=== PATIENT | male | born 1965 | race Two or more races ===

== ENCOUNTER 2024-11-21 16:26 | Inpatient (IN) | payer MEDICAID, OTHER ==
[~2024-11-21] VITALS: Ht 165.1 cm; Wt 54.4 kg
[2024-11-21] MEDS ORDERED: CALCIUM CHLORIDE 1,000 MG/10 ML DISP.SYRIN ONE (16:46)
[2024-11-21] MEDS ORDERED: SODIUM BICARBONATE SYR 50 MEQ/50 ML DISP.SYRIN ONE (16:46)
[2024-11-21] MEDS: CALCIUM CHLORIDE 1,000 MG/10 ML DISP.SYRIN IV ONE (16:48)
[2024-11-21] MEDS: SODIUM BICARBONATE SYR 100 MEQ in IV D5W 1,000 ML IV ONE (16:50)
[2024-11-21 16:54] LABS: PLATELET COUNT (AUTO) 268 K/uL (150-450); RED BLOOD CELL COUNT(AUTO) 2.48 MIL/uL (4.5-6.0); RED CELL DISTRIBUTION WIDTH 17.9 % (11.5-15.0); WHITE BLOOD COUNT (AUTO) 24.2 K/uL (4.3-11.0)
[2024-11-21 17:06] LABS: INR 1.12 (0.91-1.10)
[2024-11-21 17:12] LABS: LACTIC ACID 1.7 mmol/L (0.4-2.0)
[2024-11-21 17:15] LABS: SODIUM SERUM 126 mmol/L (136-145)
[2024-11-21 17:17] LABS: SERUM AMMONIA < 10 umol/L (11-32)
[2024-11-21 17:18] LABS: CALCIUM, SERUM 8.9 mg/dL (8.5-10.1)
[2024-11-21 17:22] LABS: ASPARTATE AMINOTRANSFERASE 43 U/L (15-37)
[2024-11-21 17:23] LABS: TOTAL PROTEIN, SERUM 7.9 g/dL (6.4-8.2)
[2024-11-21 17:26] LABS: CREATININE 12.5 mg/dL (0.6-1.3); UREA NITROGEN, BLOOD 154 mg/dL (7-18)
[2024-11-21] MEDS ORDERED: SODIUM ZIRCONIUM CYCLOSILICATE 10 GM POWD.PACK ONE (17:37)
[2024-11-21] MEDS ORDERED: INSULIN REGULAR, HUMAN 100 UNIT/ML 10 ML VIAL ONE (17:37)
[2024-11-21] MEDS: INSULIN REGULAR, HUMAN 100 UNIT/ML 10 ML VIAL IV ONE (17:45)
[2024-11-21] MEDS: SODIUM ZIRCONIUM CYCLOSILICATE 10 GM POWD.PACK GT ONE (17:48)
[2024-11-21 17:50] LABS: ALCOHOL, BLOOD < 3 mg/dL (0-10)
[2024-11-21] MEDS ORDERED: PANT40SU2 GT (19:20)
[2024-11-21] MEDS ORDERED: ACET325T53 GT ×2 (19:20)
[2024-11-21] MEDS ORDERED: AMLO-213 GT (19:20)
[2024-11-21] MEDS ORDERED: HYDR-4076 GT (19:20)
[2024-11-21] MEDS ORDERED: NUT.237L67 GT (19:20)
[2024-11-21] MEDS ORDERED: SENN-261 GT (19:20)
[2024-11-21] MEDS ORDERED: NA P133E RC (19:20)
[2024-11-21] MEDS ORDERED: INSU100V7 SQ (19:20)
[2024-11-21] MEDS ORDERED: GLUC1KIT IJ (19:20)
[2024-11-21] MEDS ORDERED: LOSA50TA39 GT (19:20)
[2024-11-21] MEDS ORDERED: ASPI-1169 GT (19:20)
[2024-11-21] MEDS ORDERED: FOLI0.8T2 GT (19:20)
[2024-11-21] MEDS ORDERED: MAGN400O6 GT (19:20)
[2024-11-21] MEDS ORDERED: IPRA3AMP23 IH (19:20)
[2024-11-21] MEDS ORDERED: ACET-73 PO (19:20)
[2024-11-21] MEDS ORDERED: BISA10SU11 RC (19:20)
[2024-11-21] MEDS ORDERED: SODI4VIA14 HHN (19:20)
[2024-11-21] MEDS ORDERED: INSU100V39 SQ (19:20)
[2024-11-21] MEDS ORDERED: ATOR40TA GT (19:20)
[2024-11-21] MEDS ORDERED: ACET-73 GT (19:20)
[2024-11-21] MEDS ORDERED: HEPARIN SODIUM, PORCINE 5000 UNITS/1 ML VIAL SQ SCH (21:00)
[2024-11-21] MEDS ORDERED: ONDANSETRON HCL/PF 4 MG/2 ML VIAL IVP PRN (21:00)
[2024-11-21 22:18] LABS: CALCIUM, SERUM 9.6 mg/dL (8.5-10.1)
[2024-11-21 22:25] LABS: SODIUM SERUM 130.0 mmol/L (136-145)
[2024-11-21 22:28] LABS: CREATININE 13.2 mg/dL (0.6-1.3); UREA NITROGEN, BLOOD 169.0 mg/dL (7-18)
[2024-11-21] MEDS ORDERED: BISACODYL SUPP (10 MG) 10 MG/SUPP.RECT SUPP.RECT RC PRN (22:30)
[2024-11-21] MEDS ORDERED: NA PHOS,M-B/NA PHOS,DI-BA 1 EA ENEMA RC PRN (22:30)
[2024-11-21] MEDS ORDERED: Medication Not On Formulary EA (Ipratropium/Albuterol Sulfate (Duoneb 2.5-0.5 Mg/3 Ml So IH PRN (22:30)
[2024-11-21] MEDS ORDERED: MAGNESIUM HYDROXIDE 30 ML UDC GT PRN (22:30)
[2024-11-21 23:00] VITALS: BP 103/53; TEMP 99.9; O2SAT 98
[2024-11-21 23:15] VITALS: BP 116/53; O2SAT 99
[2024-11-21] MEDS: CEFTRIAXONE 1 G in IV D5W 50 ML IV SCH (23:25)
[2024-11-21 23:30] VITALS: BP 120/57; O2SAT 99
[2024-11-21] MEDS: IV NS 0.9% 250 ML IV PRN (23:30)
[2024-11-21 23:45] VITALS: BP 104/64; O2SAT 99
[2024-11-22] VITALS (45 sets, daily range): BP systolic 65–166; BP diastolic 45–81; TEMP 97.6–98.8; O2SAT 98–100
[2024-11-22] MEDS ORDERED: SODIUM CHLORIDE IH SCH
[2024-11-22] MEDS: NOREPINEPHRINE 4 MG/4 ML AMPUL IV ONE (00:47)
[2024-11-22] MEDS: ALBUTEROL FS 2.5 MG/0.5 ML VIAL.NEB NEB PRN (00:50)
[2024-11-22] MEDS: IPRATROPIUM NEB FS 0.5 MG/2.5 ML AMPUL.NEB IH PRN (00:50)
[2024-11-22] MEDS: NOREPINEPHRINE 8 MG in IV NS 0.9% 242 ML IV PRN (00:52)
[2024-11-22] MEDS ORDERED: NOREPINEPHRINE 8 MG in IV NS 0.9% 242 ML IV PRN (01:00)
[2024-11-22] MEDS: HYDROCODONE/APAP 5/325MG TABLET PO PRN (01:51)
[2024-11-22] MEDS ORDERED: DOSING PER PHARMACY-CEFEPIME IVPB XX PRN (02:00)
[2024-11-22] MEDS ORDERED: DEXTROSE 50%-WATER 50 ML DISP.SYRIN IV PRN (02:00)
[2024-11-22] MEDS ORDERED: DOSING PER PHARMACY-VANCOMYCIN IV XX PRN (02:00)
[2024-11-22] MEDS: VANCOMYCIN 1 GM /D5W 250 ML PB IV ONE (03:31)
[2024-11-22] MEDS: VANCOMYCIN 1 GM in IV D5W 250ml IV ONE (03:32)
[2024-11-22 04:39] LABS: PLATELET COUNT (AUTO) 293 K/uL (150-450); RED BLOOD CELL COUNT(AUTO) 2.70 MIL/uL (4.5-6.0); RED CELL DISTRIBUTION WIDTH 17.4 % (11.5-15.0); WHITE BLOOD COUNT (AUTO) 25.1 K/uL (4.3-11.0)
[2024-11-22 04:47] LABS: CALCIUM, SERUM 9.3 mg/dL (8.5-10.1); CREATININE 4.7 mg/dL (0.6-1.3); PHOSPHORUS 2.8 mg/dL (2.5-4.9); SODIUM SERUM 135.0 mmol/L (136-145); UREA NITROGEN, BLOOD 50.0 mg/dL (7-18)
[2024-11-22 05:32] LABS: ABG BASE EXCESS 0.4 mmol/L (-2.0-3.0); ABG OXYGEN SATURATION 97.6 % (94.0-98.0); ABG PCO2 28.9 mmHg (35.0-48.0); ABG PH 7.517 (7.350-7.450); ABG PO2 111.5 mmHg (83.0-108.0); ABG TOTAL HEMOGLOBIN 8.6 G/dL (13.5-17.5); FRACTIONATED INSPIRED OXYGEN 40.0 %; SET RATE, BG 14.0; SITE, ABG RIGHT RADIAL; VT, ABG 450 mL
[2024-11-22] MEDS: BLOOD SUGAR DIAGNOSTIC 1 EACH STRIP IN SCH (06:45)
[2024-11-22] MEDS: VIT B CMPLX 3/FA/VIT C/BIOTIN 1 TAB TABLET GT SCH (08:55)
[2024-11-22] MEDS: PANTOPRAZOLE 40 MG VIAL IV SCH (08:55)
[2024-11-22] MEDS: ASPIRIN 81 MG TAB.CHEW GT SCH (08:55)
[2024-11-22] MEDS: CEFEPIME 1 GM in IV D5W 50 ML IV SCH (08:56)
[2024-11-22] MEDS: INSULIN GLARGINE, 100 UNIT/ML CARTRIDGE SQ SCH (08:56)
[2024-11-22] MEDS ORDERED: AMLODIPINE BESYLATE 10 MG TABLET GT SCH (09:00)
[2024-11-22] MEDS ORDERED: LOSARTAN POTASSIUM 50 MG TABLET GT SCH (09:00)
[2024-11-22] MEDS: INSULIN REGULAR, HUMAN 100 UNIT/ML 3 ML VIAL SQ PRN (12:50)
[2024-11-22] MEDS: PROSOURCE / PROSTAT (PYXIS) 30 ML UDC GT SCH (13:14)
[2024-11-22] MEDS: NEPRO 1,000 ML BOTTLE GT PRN (16:58)
[2024-11-22] MEDS: ATORVASTATIN 40 MG TABLET GT SCH (22:21)
[2024-11-23] VITALS (21 sets, daily range): BP systolic 94–132; BP diastolic 56–74; TEMP 97.8–98.1; O2SAT 98–100
[2024-11-23 05:09] LABS: HEPATITIS B SURFACE AB (QUAL) Non Reactive (.)
[2024-11-23 07:06] LABS: PLATELET COUNT (AUTO) 272 K/uL (150-450); RED BLOOD CELL COUNT(AUTO) 2.42 MIL/uL (4.5-6.0); RED CELL DISTRIBUTION WIDTH 17.7 % (11.5-15.0); WHITE BLOOD COUNT (AUTO) 17.1 K/uL (4.3-11.0)
[2024-11-23 07:09] LABS: CALCIUM, SERUM 9.3 mg/dL (8.5-10.1); SODIUM SERUM 135.0 mmol/L (136-145)
[2024-11-23 07:22] LABS: CREATININE 8.0 mg/dL (0.6-1.3); UREA NITROGEN, BLOOD 88.0 mg/dL (7-18)
[2024-11-23] MEDS: PANTOPRAZOLE 40 MG/PACK PACK NG SCH (09:32)
[2024-11-24] VITALS: BP 112/66; TEMP 98.2; O2SAT 100
[2024-11-24] MEDS: VANCOMYCIN 500 MG in IV D5W 100 ML IV PRN (03:57)
[2024-11-24 04:00] VITALS: BP 131/84; TEMP 98.1; O2SAT 100
[2024-11-24 06:00] LABS: PLATELET COUNT (AUTO) 316 K/uL (150-450); RED BLOOD CELL COUNT(AUTO) 2.40 MIL/uL (4.5-6.0); RED CELL DISTRIBUTION WIDTH 17.9 % (11.5-15.0); WHITE BLOOD COUNT (AUTO) 19.5 K/uL (4.3-11.0)
[2024-11-24 06:04] LABS: CALCIUM, SERUM 9.2 mg/dL (8.5-10.1); CREATININE 4.3 mg/dL (0.6-1.3); SODIUM SERUM 137.0 mmol/L (136-145); UREA NITROGEN, BLOOD 39.0 mg/dL (7-18)
[2024-11-24 08:00] VITALS: BP 129/73; TEMP 100; O2SAT 99
[2024-11-24] MEDS: ACETAMINOPHEN 325 MG TABLET PO PRN (09:51)
[2024-11-24 12:00] VITALS: BP 125/72; TEMP 101.7; O2SAT 100
[2024-11-24 16:00] VITALS: BP 104/73; TEMP 98.1; O2SAT 100
[2024-11-24 20:00] VITALS: BP 128/77; TEMP 98.2; O2SAT 99
[2024-11-25] VITALS (7 sets, daily range): BP systolic 131–176; BP diastolic 72–77; TEMP 97.5–98.4; O2SAT 98–100
[2024-11-25 08:35] LABS: PLATELET COUNT (AUTO) 295 K/uL (150-450); RED BLOOD CELL COUNT(AUTO) 2.87 MIL/uL (4.5-6.0); RED CELL DISTRIBUTION WIDTH 17.9 % (11.5-15.0); WHITE BLOOD COUNT (AUTO) 15.5 K/uL (4.3-11.0)
[2024-11-25 08:36] LABS: CALCIUM, SERUM 9.6 mg/dL (8.5-10.1); CREATININE 6.3 mg/dL (0.6-1.3); SODIUM SERUM 138.0 mmol/L (136-145); UREA NITROGEN, BLOOD 73.0 mg/dL (7-18)
[2024-11-26] VITALS: BP 93/49; TEMP 98.4; O2SAT 99
[2024-11-26 04:00] VITALS: BP 90/64; TEMP 98.5; O2SAT 100
[2024-11-26 06:11] LABS: OCCULT BLOOD STOOL NEGATIVE (NEGATIVE)
[2024-11-26 06:48] LABS: PLATELET COUNT (AUTO) 274 K/uL (150-450); RED BLOOD CELL COUNT(AUTO) 2.89 MIL/uL (4.5-6.0); RED CELL DISTRIBUTION WIDTH 17.8 % (11.5-15.0); WHITE BLOOD COUNT (AUTO) 22.4 K/uL (4.3-11.0)
[2024-11-26 07:04] LABS: CALCIUM, SERUM 9.3 mg/dL (8.5-10.1); CREATININE 4.3 mg/dL (0.6-1.3); SODIUM SERUM 137.0 mmol/L (136-145); UREA NITROGEN, BLOOD 46.0 mg/dL (7-18)
[2024-11-26 08:00] VITALS: BP 90/65; TEMP 97.8; O2SAT 96
[2024-11-26 12:00] VITALS: BP 95/62; TEMP 98.1; O2SAT 96
[2024-11-26 16:01] VITALS: BP 92/59; TEMP 99; O2SAT 96
[2024-11-26 20:00] VITALS: BP 91/65; TEMP 97.5; O2SAT 98
[2024-11-27] VITALS: BP 94/61; TEMP 99.3; O2SAT 98
[2024-11-27 04:00] VITALS: BP 99/67; TEMP 99; O2SAT 100
[2024-11-27 07:26] LABS: PLATELET COUNT (AUTO) 283 K/uL (150-450); RED BLOOD CELL COUNT(AUTO) 2.68 MIL/uL (4.5-6.0); RED CELL DISTRIBUTION WIDTH 17.7 % (11.5-15.0); WHITE BLOOD COUNT (AUTO) 21.2 K/uL (4.3-11.0)
[2024-11-27 07:35] LABS: CALCIUM, SERUM 9.7 mg/dL (8.5-10.1); CREATININE 6.4 mg/dL (0.6-1.3); SODIUM SERUM 140.0 mmol/L (136-145); UREA NITROGEN, BLOOD 77.0 mg/dL (7-18)
[2024-11-27 08:00] VITALS: BP 94/62; TEMP 98.1; O2SAT 100
[2024-11-27] MEDS: ALBUMIN 25% 25 GM in PREMIX 1 EA IV PRN (11:41)
[2024-11-27 12:00] VITALS: BP 95/63; TEMP 98.3; O2SAT 100
[2024-11-27 16:00] VITALS: BP 125/73; TEMP 97.5; O2SAT 100
[2024-11-27 20:02] VITALS: BP 106/67; TEMP 98.5; O2SAT 100
[2024-11-28 00:10] VITALS: BP 110/70; TEMP 98.8; O2SAT 100
[2024-11-28 04:15] VITALS: BP 110/63; TEMP 97.6; O2SAT 100
[2024-11-28 07:26] LABS: PLATELET COUNT (AUTO) 255 K/uL (150-450); RED BLOOD CELL COUNT(AUTO) 2.84 MIL/uL (4.5-6.0); RED CELL DISTRIBUTION WIDTH 17.7 % (11.5-15.0); WHITE BLOOD COUNT (AUTO) 21.9 K/uL (4.3-11.0)
[2024-11-28 08:00] VITALS: BP 100/64; TEMP 100.8; O2SAT 100
[2024-11-28 08:06] LABS: CALCIUM, SERUM 9.9 mg/dL (8.5-10.1); CREATININE 5.0 mg/dL (0.6-1.3); SODIUM SERUM 143.0 mmol/L (136-145); UREA NITROGEN, BLOOD 58.0 mg/dL (7-18)
[2024-11-28] MEDS: DAKINS QUARTER STRENGTH (0.125%) 480 ML BOTTLE TOP SCH (10:27)
[2024-11-28 12:00] VITALS: BP 102/63; TEMP 99.1; O2SAT 100
[2024-11-28 16:00] VITALS: BP 102/70; TEMP 98.1; O2SAT 100
[2024-11-28 20:00] VITALS: BP 97/63; TEMP 98.1; O2SAT 100
[2024-11-28] MEDS: MEROPENEM 500 MG in IV NS 0.9% 50 ML IV SCH (21:45)
[2024-11-29] VITALS (19 sets, daily range): BP systolic 76–128; BP diastolic 54–75; TEMP 97.7–99; O2SAT 96–100
[2024-11-29 07:47] LABS: ASPARTATE AMINOTRANSFERASE 65.0 U/L (15-37); TOTAL PROTEIN, SERUM 9.1 g/dL (6.4-8.2)
[2024-11-29 07:49] LABS: CALCIUM, SERUM 9.8 mg/dL (8.5-10.1); CREATININE 6.7 mg/dL (0.6-1.3); SODIUM SERUM 140.0 mmol/L (136-145)
[2024-11-29 08:39] LABS: UREA NITROGEN, BLOOD 89.0 mg/dL (7-18)
[2024-11-29 10:45] LABS: PLATELET COUNT (AUTO) 302 K/uL (150-450); RED BLOOD CELL COUNT(AUTO) 2.66 MIL/uL (4.5-6.0); RED CELL DISTRIBUTION WIDTH 17.5 % (11.5-15.0); WHITE BLOOD COUNT (AUTO) 20.8 K/uL (4.3-11.0)
[2024-11-30] VITALS: BP 146/85; TEMP 97.7; O2SAT 100
[2024-11-30 04:00] VITALS: BP 99/69; TEMP 97.9; O2SAT 100
[2024-11-30 06:58] LABS: CALCIUM, SERUM 10.0 mg/dL (8.5-10.1); CREATININE 4.6 mg/dL (0.6-1.3); SODIUM SERUM 143.0 mmol/L (136-145); UREA NITROGEN, BLOOD 64.0 mg/dL (7-18)
[2024-11-30 08:00] VITALS: BP 105/71; TEMP 99; O2SAT 100
[2024-11-30 12:00] VITALS: BP 101/75; TEMP 98.9; O2SAT 100
[2024-11-30 13:32] LABS: PLATELET COUNT (AUTO) 256 K/uL (150-450); RED BLOOD CELL COUNT(AUTO) 2.96 MIL/uL (4.5-6.0); RED CELL DISTRIBUTION WIDTH 18.1 % (11.5-15.0); WHITE BLOOD COUNT (AUTO) 18.6 K/uL (4.3-11.0)
[2024-11-30 16:00] VITALS: BP 103/82; TEMP 97.7; O2SAT 100
[2024-11-30 20:00] VITALS: BP 118/80; TEMP 97.5; O2SAT 100
[2024-12-01] VITALS (7 sets, daily range): BP systolic 82–116; BP diastolic 60–73; TEMP 97.5–100.6; O2SAT 99–100
[2024-12-01 07:29] LABS: CALCIUM, SERUM 10.0 mg/dL (8.5-10.1); CREATININE 6.2 mg/dL (0.6-1.3); SODIUM SERUM 143.0 mmol/L (136-145)
[2024-12-01 08:06] LABS: UREA NITROGEN, BLOOD 98.0 mg/dL (7-18)
[2024-12-01] MEDS ORDERED: DOSING PER PHARMACY-TOBRAMYCIN IV XX PRN (16:00)
[2024-12-01] MEDS: LEVOFLOXACIN (250MG) 250 MG TABLET PO SCH (18:48)
[2024-12-01] MEDS: D5W IV ONE (18:48)
[2024-12-01] MEDS: TOBRAMYCIN IV ONE (18:48)
[2024-12-02] VITALS: BP 112/65; TEMP 98.1; O2SAT 100
[2024-12-02 04:00] VITALS: BP 107/73; TEMP 98.2; O2SAT 100
[2024-12-02 07:15] LABS: PLATELET COUNT (AUTO) 215 K/uL (150-450); RED BLOOD CELL COUNT(AUTO) 2.66 MIL/uL (4.5-6.0); RED CELL DISTRIBUTION WIDTH 17.5 % (11.5-15.0); WHITE BLOOD COUNT (AUTO) 16.8 K/uL (4.3-11.0)
[2024-12-02 07:41] LABS: CALCIUM, SERUM 9.6 mg/dL (8.5-10.1); CREATININE 4.7 mg/dL (0.6-1.3); SODIUM SERUM 138.0 mmol/L (136-145); UREA NITROGEN, BLOOD 69.0 mg/dL (7-18)
[2024-12-02 08:00] VITALS: BP 110/68; TEMP 98.1; O2SAT 100
[2024-12-02 12:00] VITALS: BP 103/62; TEMP 98.6; O2SAT 99
[2024-12-02 16:00] VITALS: BP 94/66; TEMP 98.1; O2SAT 100
[2024-12-02 20:00] VITALS: BP 119/79; TEMP 98.1; O2SAT 100
[2024-12-03] VITALS: BP 122/82; TEMP 97.3; O2SAT 100
[2024-12-03 04:00] VITALS: BP 134/85; TEMP 98.1; O2SAT 100
[2024-12-03 07:18] LABS: CALCIUM, SERUM 9.4 mg/dL (8.5-10.1); CREATININE 6.2 mg/dL (0.6-1.3); SODIUM SERUM 135.0 mmol/L (136-145)
[2024-12-03 07:48] LABS: UREA NITROGEN, BLOOD 104.0 mg/dL (7-18)
[2024-12-03 08:00] VITALS: BP 108/72; TEMP 97.5; O2SAT 99
[2024-12-03 12:00] VITALS: BP 130/80; TEMP 97.7; O2SAT 99
[2024-12-03 16:00] VITALS: BP 101/70; TEMP 97.6; O2SAT 100
[2024-12-03] MEDS ORDERED: ALBUMIN 25% 25 GM in PREMIX 1 EA IV PRN (16:30)
[2024-12-03] MEDS: TOBRAMYCIN 80 MG in IV D5W 50 ML IV PRN (19:35)
[2024-12-03 20:00] VITALS: BP 145/90; TEMP 97; O2SAT 99
[2024-12-04] VITALS: BP 131/84; TEMP 97.3; O2SAT 100
[2024-12-04 04:00] VITALS: BP 111/72; TEMP 98.8; O2SAT 100
[2024-12-04 07:12] LABS: CALCIUM, SERUM 9.5 mg/dL (8.5-10.1); CREATININE 4.6 mg/dL (0.6-1.3); SODIUM SERUM 137.0 mmol/L (136-145); UREA NITROGEN, BLOOD 74.0 mg/dL (7-18)
[2024-12-04 08:00] VITALS: BP 87/58; TEMP 99.1; O2SAT 99
[2024-12-04 09:26] LABS: PLATELET COUNT (AUTO) 219 K/uL (150-450); RED BLOOD CELL COUNT(AUTO) 2.61 MIL/uL (4.5-6.0); RED CELL DISTRIBUTION WIDTH 18.1 % (11.5-15.0); WHITE BLOOD COUNT (AUTO) 14.6 K/uL (4.3-11.0)
[2024-12-04 12:00] VITALS: BP 101/70; TEMP 98.6; O2SAT 99
[2024-12-04 16:00] VITALS: BP 109/77; TEMP 98.6; O2SAT 99
[2024-12-04 20:00] VITALS: BP 126/80; TEMP 98.2; O2SAT 100
[2024-12-05] VITALS (7 sets, daily range): BP systolic 62–148; BP diastolic 47–87; TEMP 97.5–99; O2SAT 97–100
[2024-12-05 07:00] LABS: PLATELET COUNT (AUTO) 250 K/uL (150-450); RED BLOOD CELL COUNT(AUTO) 2.80 MIL/uL (4.5-6.0); RED CELL DISTRIBUTION WIDTH 17.9 % (11.5-15.0); WHITE BLOOD COUNT (AUTO) 15.6 K/uL (4.3-11.0)
[2024-12-05 07:05] LABS: CALCIUM, SERUM 9.3 mg/dL (8.5-10.1); SODIUM SERUM 140.0 mmol/L (136-145)
[2024-12-05 07:14] LABS: CREATININE 6.0 mg/dL (0.6-1.3)
[2024-12-05 07:51] LABS: UREA NITROGEN, BLOOD 102.0 mg/dL (7-18)
[2024-12-06] VITALS: BP 133/75; TEMP 97.9; O2SAT 100
[2024-12-06 04:00] VITALS: BP 133/85; TEMP 97.5; O2SAT 100
[2024-12-06 06:09] LABS: CALCIUM, SERUM 9.3 mg/dL (8.5-10.1); CREATININE 6.1 mg/dL (0.6-1.3); SODIUM SERUM 133.0 mmol/L (136-145)
[2024-12-06 06:11] LABS: UREA NITROGEN, BLOOD 101.0 mg/dL (7-18)
[2024-12-06 09:54] VITALS: BP 140/90; TEMP 97.3; O2SAT 100
[2024-12-06 12:00] VITALS: BP 157/90; TEMP 98; O2SAT 100
[2024-12-06 16:00] VITALS: BP 135/84; TEMP 97.6; O2SAT 100
[2024-12-06 20:00] VITALS: BP 145/90; TEMP 97.8; O2SAT 100
[2024-12-07] VITALS: BP 121/81; TEMP 97.8; O2SAT 100
[2024-12-07 04:00] VITALS: BP 112/75; TEMP 97.5; O2SAT 100
[2024-12-07 06:22] LABS: PLATELET COUNT (AUTO) 265 K/uL (150-450); RED BLOOD CELL COUNT(AUTO) 2.58 MIL/uL (4.5-6.0); RED CELL DISTRIBUTION WIDTH 17.8 % (11.5-15.0); WHITE BLOOD COUNT (AUTO) 10.8 K/uL (4.3-11.0)
[2024-12-07 06:41] LABS: CREATININE 7.2 mg/dL (0.6-1.3); SODIUM SERUM 136.0 mmol/L (136-145)
[2024-12-07 06:55] LABS: CALCIUM, SERUM 9.4 mg/dL (8.5-10.1)
[2024-12-07 07:25] LABS: UREA NITROGEN, BLOOD 123.0 mg/dL (7-18)
[2024-12-07 08:00] VITALS: BP 137/84; TEMP 97.7; O2SAT 100
[2024-12-07 12:00] VITALS: BP 124/82; TEMP 98.6; O2SAT 100
[2024-12-07 16:00] VITALS: BP 163/92; TEMP 98.6; O2SAT 100
[2024-12-07 20:00] VITALS: BP 136/90; TEMP 97.5; O2SAT 100
== END 2024-12-07 23:11 | DRG 720 ==
LOC: ER 16:32 → ICU 19:11 → TELE1 11-23 19:31
PROVIDERS: ADMIT Registered Nurse Psychiatric/Mental Health; ATTEND Nurse Practitioner Acute Care
PROC: 5A1955Z Respiratory Ventilation, Greater than 96 Consecutive Hours (ICD-10-PCS; principal; 2024-11-21)
PROC: 5A1D70Z Performance of Urinary Filtration, Intermittent, Less than 6 Hours Per Day (ICD-10-PCS; 2024-11-21)
PROC: 05HB33Z Insertion of Infusion Device into Right Basilic Vein, Percutaneous Approach (ICD-10-PCS; 2024-11-22)
DX: A41.9 Sepsis, unspecified organism (principal); J96.21 Acute and chronic respiratory failure with hypoxia; I13.2 Hypertensive heart and chronic kidney disease with heart failure and with stage 5 chronic kidney disease, or end stage renal disease; Z99.11 Dependence on respirator [ventilator] status; J15.1 Pneumonia due to Pseudomonas; G93.41 Metabolic encephalopathy; R13.10 Dysphagia, unspecified; L89.156 Pressure-induced deep tissue damage of sacral region; I21.A1 Myocardial infarction type 2; N18.6 End stage renal disease; D63.8 Anemia in other chronic diseases classified elsewhere; Z93.0 Tracheostomy status; E87.5 Hyperkalemia; E11.65 Type 2 diabetes mellitus with hyperglycemia; Z99.2 Dependence on renal dialysis; Z93.1 Gastrostomy status; Z86.74 Personal history of sudden cardiac arrest; Z86.79 Personal history of other diseases of the circulatory system; Z20.822 Contact with and (suspected) exposure to COVID-19; I50.9 Heart failure, unspecified; Z79.4 Long term (current) use of insulin; Z79.82 Long term (current) use of aspirin; Z79.51 Long term (current) use of inhaled steroids; Y95 Nosocomial condition; E78.5 Hyperlipidemia, unspecified; E11.22 Type 2 diabetes mellitus with diabetic chronic kidney disease; E87.1 Hypo-osmolality and hyponatremia; R79.89 Other specified abnormal findings of blood chemistry; L98.9 Disorder of the skin and subcutaneous tissue, unspecified; L89.326 Pressure-induced deep tissue damage of left buttock
CPT/HCPCS: 31720; 36415; 36600; 70450-TC; 71045-TC; 71250-TC; 74018; 80048-TC; 80076-TC; 80202-TC; 82140-TC; 82272-TC; 82803-TC; 82962-TC; 83605-TC; 83735-TC; 84100-TC; 84443-TC; 84484-TC; 85025-TC; 85730-TC; 86706; 86850-TC; 87040-TC; 87070-TC; 87081-TC; 87186-TC; 87205-TC; 87340; 90935-TC; 93307-TC; 94003-TC; 94760-TC; 94762-TC; 94799-TC; 99082-TC; A4216; A4223; A4623; A6213; A6403; G0378; G0480; J0692; J0696; J1644; J1815; J2185; J2470; J3260; J3373; J3490; J7030; J7050; J7060; J7120; P9047

== ENCOUNTER 2025-02-13 00:29 | Inpatient (IN) | payer OTHER ==
[2025-02-13] VITALS (52 sets, daily range): BP systolic 76–187; BP diastolic 52–91; TEMP 97.5–99; O2SAT 79–100
[~2025-02-13] VITALS: Ht 162.6 cm; Wt 53.5 kg
[~2025-02-13 00:29] MED LIST: ACET-73 GT; ACET-73 PO; ACET325T53 GT; AMLO-213 GT; ASPI-1169 GT; ATOR40TA GT; BISA10SU11 RC; FOLI0.8T2 GT; GLUC1KIT IJ; HYDR-4076 GT; INSU100V39 SQ; INSU100V7 SQ; IPRA3AMP23 IH; LOSA50TA39 GT; MAGN400O6 GT; NA P133E RC; NUT.237L67 GT; PANT40SU2 GT; SENN-261 GT; SODI4VIA14 HHN
[2025-02-13 00:59] LABS: PLATELET COUNT (AUTO) 209 K/uL (150-450); RED BLOOD CELL COUNT(AUTO) 3.08 MIL/uL (4.5-6.0); RED CELL DISTRIBUTION WIDTH 20.2 % (11.5-15.0); WHITE BLOOD COUNT (AUTO) 17.7 K/uL (4.3-11.0)
[2025-02-13 01:12] LABS: LACTIC ACID 1.6 mmol/L (0.4-2.0)
[2025-02-13 01:14] LABS: INR 1.04 (0.91-1.10)
[2025-02-13 01:21] LABS: ASPARTATE AMINOTRANSFERASE 80 U/L (15-37); CALCIUM, SERUM 9.1 mg/dL (8.5-10.1); CREATININE 1.9 mg/dL (0.6-1.3); SODIUM SERUM 135 mmol/L (136-145); TOTAL PROTEIN, SERUM 8.3 g/dL (6.4-8.2); UREA NITROGEN, BLOOD 10 mg/dL (7-18)
[2025-02-13] MEDS ORDERED: INSU100V39 SQ (01:25)
[2025-02-13] MEDS ORDERED: IPRA3AMP23 IH (01:25)
[2025-02-13] MEDS ORDERED: IPRA0.2S49 HHN (01:29)
[2025-02-13] MEDS: PIPERACILLIN /TAZOBACTAM 3.375 G in IV D5W 50 ML IV ONE (01:56)
[2025-02-13] MEDS ORDERED: PIPERACI/TAZO 3.375GM/D5W 50ML PB IV ONE (01:56)
[2025-02-13] MEDS ORDERED: DOSING PER PHARMACY-VANCOMYCIN IV XX PRN (02:00)
[2025-02-13] MEDS ORDERED: DOSING PER PHARMACY-ZOSYN IV 1 EA EA XX PRN (02:00)
[2025-02-13] MEDS ORDERED: ACETAMINOPHEN 325 MG TABLET PO PRN (02:00)
[2025-02-13] MEDS ORDERED: ACETAMINOPHEN 650 MG/SUPP.RECT RC PRN (02:00)
[2025-02-13] MEDS ORDERED: Z GUARD REMEDY 4 OZ OINT TP PRN (02:00)
[2025-02-13] MEDS ORDERED: HYDROCODONE/APAP 5/325MG TABLET GT PRN (02:00)
[2025-02-13] MEDS ORDERED: ONDANSETRON HCL/PF 4 MG/2 ML VIAL IVP PRN (02:00)
[2025-02-13] MEDS ORDERED: ACETAMINOPHEN ES 500 MG TABLET GT PRN (02:30)
[2025-02-13] MEDS ORDERED: ACETAMINOPHEN ES 500 MG TABLET PO PRN (02:30)
[2025-02-13] MEDS ORDERED: BISACODYL SUPP (10 MG) 10 MG/SUPP.RECT SUPP.RECT RC PRN (02:30)
[2025-02-13] MEDS ORDERED: SENNOSIDES 8.6 MG TABLET GT PRN (02:30)
[2025-02-13] MEDS ORDERED: NA PHOS,M-B/NA PHOS,DI-BA 1 EA ENEMA RC PRN (02:30)
[2025-02-13] MEDS: VANCOMYCIN 1 GM /D5W 250 ML PB IV ONE (04:08)
[2025-02-13] MEDS: VANCOMYCIN 1 GM in IV D5W 250ml IV ONE (04:09)
[2025-02-13] MEDS: POTASSIUM CHLORIDE 20 MEQ POWDER PACKET GT ONE (04:10)
[2025-02-13] MEDS: IV NS 0.9% 250 ML IV PRN (04:11)
[2025-02-13] MEDS: BLOOD SUGAR DIAGNOSTIC 1 EACH STRIP IN SCH (06:30)
[2025-02-13] MEDS: ASPIRIN 81 MG TAB.CHEW GT SCH (08:56)
[2025-02-13] MEDS: VIT B CMPLX 3/FA/VIT C/BIOTIN 1 TAB TABLET GT SCH (08:56)
[2025-02-13] MEDS: PANTOPRAZOLE 40 MG VIAL IV SCH (08:57)
[2025-02-13] MEDS: LOSARTAN POTASSIUM 50 MG TABLET GT SCH (09:00)
[2025-02-13] MEDS: AMLODIPINE BESYLATE 10 MG TABLET GT SCH (09:00)
[2025-02-13] MEDS ORDERED: POLY17PO4 GT (09:02)
[2025-02-13] MEDS ORDERED: EPOE200011 SQ (09:02)
[2025-02-13] MEDS ORDERED: [UNRECOGNIZED DRUG - REMARK] GT (09:02)
[2025-02-13] MEDS ORDERED: CHLO473M2 MM (09:02)
[2025-02-13] MEDS ORDERED: MULT-213 GT (09:02)
[2025-02-13] MEDS ORDERED: MUCOMYST 20% HHN (09:02)
[2025-02-13] MEDS ORDERED: IPRA12.9 HHN (09:02)
[2025-02-13] MEDS ORDERED: NALO0.4V2 (09:02)
[2025-02-13] MEDS ORDERED: PROSTAT SF GT (09:02)
[2025-02-13] MEDS ORDERED: DOCU100T2 GT (09:02)
[2025-02-13] MEDS ORDERED: ZINC1CAP2 PO (09:02)
[2025-02-13] MEDS ORDERED: ASCO500T10 GT (09:02)
[2025-02-13] MEDS: PIPERACILLIN /TAZOBACTAM 2.25 G in IV D5W 50 ML IV SCH (09:04)
[2025-02-13] MEDS: DEXTROSE 50%-WATER 50 ML DISP.SYRIN IV PRN (10:18)
[2025-02-13] MEDS: THERAHONEY GEL 1.5 OZ TUBE TP SCH (11:03)
[2025-02-13] MEDS: ACETYLCYSTEINE 10% SOLN 400 MG/4 ML VIAL NEB SCH (11:52)
[2025-02-13 12:21] LABS: ABG BASE EXCESS 5.0 mmol/L (-2.0-3.0); ABG OXYGEN SATURATION 90.6 % (94.0-98.0); ABG PCO2 38.7 mmHg (35.0-48.0); ABG PH 7.488 (7.350-7.450); ABG PO2 59.3 mmHg (83.0-108.0); ABG TOTAL HEMOGLOBIN 10.9 G/dL (13.5-17.5); FRACTIONATED INSPIRED OXYGEN 50.0 %; PEEP,BG 5 cm H2O; SET RATE, BG 16.0; SITE, ABG RIGHT RADIAL; VT, ABG 450 mL
[2025-02-13] MEDS: NEPRO 1,000 ML BOTTLE GT SCH (12:30)
[2025-02-13 12:52] LABS: PLATELET COUNT (AUTO) 186 K/uL (150-450); RED BLOOD CELL COUNT(AUTO) 2.73 MIL/uL (4.5-6.0); RED CELL DISTRIBUTION WIDTH 19.8 % (11.5-15.0); WHITE BLOOD COUNT (AUTO) 16.8 K/uL (4.3-11.0)
[2025-02-13] MEDS: NOREPINEPHRINE 8 MG in IV NS 0.9% 242 ML IV PRN (13:51)
[2025-02-13 13:54] LABS: ASPARTATE AMINOTRANSFERASE 81.0 U/L (15-37); CALCIUM, SERUM 8.9 mg/dL (8.5-10.1); CREATININE 2.4 mg/dL (0.6-1.3); PHOSPHORUS 2.4 mg/dL (2.5-4.9); SODIUM SERUM 135.0 mmol/L (136-145); TOTAL PROTEIN, SERUM 7.5 g/dL (6.4-8.2); UREA NITROGEN, BLOOD 19.0 mg/dL (7-18)
[2025-02-14] VITALS (29 sets, daily range): BP systolic 99–173; BP diastolic 58–101; TEMP 98–99.2; O2SAT 97–100
[2025-02-14] MEDS: ATORVASTATIN 40 MG TABLET GT SCH (00:38)
[2025-02-14] MEDS: VANCOMYCIN POST DIALYSIS 500MG IV PRN (00:58)
[2025-02-14] MEDS: VANCOMYCIN 1 GM /D5W 250 ML PB IV ONE (00:58)
[2025-02-14 05:09] LABS: PLATELET COUNT (AUTO) 183 K/uL (150-450); RED BLOOD CELL COUNT(AUTO) 2.84 MIL/uL (4.5-6.0); RED CELL DISTRIBUTION WIDTH 20.4 % (11.5-15.0); WHITE BLOOD COUNT (AUTO) 9.9 K/uL (4.3-11.0)
[2025-02-14 05:53] LABS: CALCIUM, SERUM 9.2 mg/dL (8.5-10.1); CREATININE 1.9 mg/dL (0.6-1.3); PHOSPHORUS 1.8 mg/dL (2.5-4.9); SODIUM SERUM 137.0 mmol/L (136-145); UREA NITROGEN, BLOOD 12.0 mg/dL (7-18)
[2025-02-14] MEDS: ALBUTEROL FS 2.5 MG/3 ML VIAL.NEB NEB PRN (07:43)
[2025-02-14] MEDS: IPRATROPIUM NEB FS 0.5 MG/2.5 ML AMPUL.NEB NEB PRN (07:43)
[2025-02-14] MEDS: POTASSIUM PHOSPHATE MM 5 MMOL in IV NS 0.9% 100 ML IV SCH (10:02)
[2025-02-14] MEDS: INSULIN REGULAR, HUMAN 100 UNIT/ML 3 ML VIAL SQ PRN (11:48)
[2025-02-14] MEDS: NEUTRA PHOS 1 POWD.PACKET GT ONE (17:05)
[2025-02-14] MEDS: PROSOURCE / PROSTAT (PYXIS) 30 ML UDC GT SCH (17:05)
[2025-02-15] VITALS (24 sets, daily range): BP systolic 110–148; BP diastolic 64–85; TEMP 98–99; O2SAT 90–100
[2025-02-15 07:16] LABS: PLATELET COUNT (AUTO) 193 K/uL (150-450); RED BLOOD CELL COUNT(AUTO) 2.72 MIL/uL (4.5-6.0); RED CELL DISTRIBUTION WIDTH 20.6 % (11.5-15.0); WHITE BLOOD COUNT (AUTO) 13.4 K/uL (4.3-11.0)
[2025-02-15 07:34] LABS: ASPARTATE AMINOTRANSFERASE 61.0 U/L (15-37); CALCIUM, SERUM 8.8 mg/dL (8.5-10.1); CREATININE 2.9 mg/dL (0.6-1.3); PHOSPHORUS 3.6 mg/dL (2.5-4.9); SODIUM SERUM 138.0 mmol/L (136-145); TOTAL PROTEIN, SERUM 7.8 g/dL (6.4-8.2); UREA NITROGEN, BLOOD 27.0 mg/dL (7-18)
[2025-02-15] MEDS: PANTOPRAZOLE 40 MG/PACK PACK GT SCH (09:00)
[2025-02-16] VITALS (15 sets, daily range): BP systolic 117–157; BP diastolic 67–87; TEMP 98.1–99.3; O2SAT 100
[2025-02-16 04:27] LABS: PLATELET COUNT (AUTO) 187 K/uL (150-450); RED BLOOD CELL COUNT(AUTO) 2.73 MIL/uL (4.5-6.0); RED CELL DISTRIBUTION WIDTH 20.1 % (11.5-15.0); WHITE BLOOD COUNT (AUTO) 11.2 K/uL (4.3-11.0)
[2025-02-16 04:36] LABS: CALCIUM, SERUM 8.9 mg/dL (8.5-10.1); CREATININE 2.5 mg/dL (0.6-1.3); SODIUM SERUM 141.0 mmol/L (136-145); UREA NITROGEN, BLOOD 25.0 mg/dL (7-18)
[2025-02-17] VITALS: BP 111/64; TEMP 98.3; O2SAT 99
[2025-02-17 04:00] VITALS: BP 123/71; TEMP 98; O2SAT 100
[2025-02-17 07:23] LABS: PLATELET COUNT (AUTO) 171 K/uL (150-450); RED BLOOD CELL COUNT(AUTO) 2.88 MIL/uL (4.5-6.0); RED CELL DISTRIBUTION WIDTH 19.9 % (11.5-15.0); WHITE BLOOD COUNT (AUTO) 10.7 K/uL (4.3-11.0)
[2025-02-17 07:48] LABS: CALCIUM, SERUM 9.5 mg/dL (8.5-10.1); CREATININE 3.9 mg/dL (0.6-1.3); SODIUM SERUM 138.0 mmol/L (136-145); UREA NITROGEN, BLOOD 49.0 mg/dL (7-18)
[2025-02-17 08:00] VITALS: BP 141/81; TEMP 98.1; O2SAT 100
[2025-02-17] MEDS: ALBUMIN 25% 25 GM in PREMIX 1 EA IV PRN (10:41)
[2025-02-17 12:00] VITALS: BP 140/74; TEMP 98; O2SAT 95
[2025-02-17 16:00] VITALS: BP 132/70; TEMP 98.2; O2SAT 99
[2025-02-17 20:00] VITALS: BP 144/74; TEMP 98.2; O2SAT 99
[2025-02-18] VITALS: BP 136/68; TEMP 99.3; O2SAT 99
[2025-02-18 04:00] VITALS: BP 116/74; TEMP 99; O2SAT 100
[2025-02-18 07:55] LABS: PLATELET COUNT (AUTO) 167 K/uL (150-450); RED BLOOD CELL COUNT(AUTO) 2.86 MIL/uL (4.5-6.0); RED CELL DISTRIBUTION WIDTH 18.9 % (11.5-15.0); WHITE BLOOD COUNT (AUTO) 8.7 K/uL (4.3-11.0)
[2025-02-18 08:00] VITALS: BP 135/77; TEMP 98.3; O2SAT 94
[2025-02-18 09:21] LABS: CALCIUM, SERUM 9.2 mg/dL (8.5-10.1); CREATININE 3.3 mg/dL (0.6-1.3); SODIUM SERUM 135.0 mmol/L (136-145); UREA NITROGEN, BLOOD 37.0 mg/dL (7-18)
[2025-02-18 12:00] VITALS: BP 144/77; TEMP 99.8; O2SAT 95
[2025-02-18 16:00] VITALS: BP 129/72; TEMP 100; O2SAT 96
[2025-02-18] MEDS: ACETAMINOPHEN 650 MG/20.3 ML UDC GT PRN (16:33)
[2025-02-18 20:00] VITALS: BP 158/79; TEMP 102.8; O2SAT 95
[2025-02-19] VITALS (7 sets, daily range): BP systolic 112–156; BP diastolic 63–76; TEMP 98.1–101.1; O2SAT 92–100
[2025-02-19 06:27] LABS: PLATELET COUNT (AUTO) 142 K/uL (150-450); RED BLOOD CELL COUNT(AUTO) 2.78 MIL/uL (4.5-6.0); RED CELL DISTRIBUTION WIDTH 18.3 % (11.5-15.0); WHITE BLOOD COUNT (AUTO) 7.2 K/uL (4.3-11.0)
[2025-02-19 06:32] LABS: CALCIUM, SERUM 9.5 mg/dL (8.5-10.1); CREATININE 4.5 mg/dL (0.6-1.3); SODIUM SERUM 139.0 mmol/L (136-145); UREA NITROGEN, BLOOD 59.0 mg/dL (7-18)
[2025-02-19 07:59] LABS: PHOSPHORUS 3.5 mg/dL (2.5-4.9)
== END 2025-02-19 18:56 | DRG 720 ==
LOC: ER 01:22 → ICU 02:16 → TELE-TD 02-16 13:11 → TELE1 02-16 13:23
PROVIDERS: ADMIT Nurse Practitioner Acute Care; ATTEND Nurse Practitioner Acute Care
PROC: 5A1955Z Respiratory Ventilation, Greater than 96 Consecutive Hours (ICD-10-PCS; principal; 2025-02-13)
PROC: 5A1D70Z Performance of Urinary Filtration, Intermittent, Less than 6 Hours Per Day (ICD-10-PCS; 2025-02-13)
PROC: 05H933Z Insertion of Infusion Device into Right Brachial Vein, Percutaneous Approach (ICD-10-PCS; 2025-02-13)
DX: A41.50 Gram-negative sepsis, unspecified (principal); J95.851 Ventilator associated pneumonia; R65.21 Severe sepsis with septic shock; G93.1 Anoxic brain damage, not elsewhere classified; J96.21 Acute and chronic respiratory failure with hypoxia; E43 Unspecified severe protein-calorie malnutrition; G93.41 Metabolic encephalopathy; Z99.11 Dependence on respirator [ventilator] status; I12.0 Hypertensive chronic kidney disease with stage 5 chronic kidney disease or end stage renal disease; J15.69 Pneumonia due to other Gram-negative bacteria; N18.6 End stage renal disease; Z99.2 Dependence on renal dialysis; L89.313 Pressure ulcer of right buttock, stage 3; Z93.0 Tracheostomy status; J90 Pleural effusion, not elsewhere classified; D63.1 Anemia in chronic kidney disease; E11.22 Type 2 diabetes mellitus with diabetic chronic kidney disease; L89.320 Pressure ulcer of left buttock, unstageable; Z68.20 Body mass index [BMI] 20.0-20.9, adult; D68.59 Other primary thrombophilia; L89.896 Pressure-induced deep tissue damage of other site; E87.6 Hypokalemia; E88.09 Other disorders of plasma-protein metabolism, not elsewhere classified; J98.11 Atelectasis; I25.2 Old myocardial infarction; I25.10 Atherosclerotic heart disease of native coronary artery without angina pectoris; R13.10 Dysphagia, unspecified; E78.5 Hyperlipidemia, unspecified; E87.1 Hypo-osmolality and hyponatremia; I31.39 Other pericardial effusion (noninflammatory); Z86.16 Personal history of COVID-19; Z79.82 Long term (current) use of aspirin; Z79.899 Other long term (current) drug therapy; Z86.74 Personal history of sudden cardiac arrest; Z93.1 Gastrostomy status; Z86.73 Personal history of transient ischemic attack (TIA), and cerebral infarction without residual deficits; Z79.4 Long term (current) use of insulin
CPT/HCPCS: 31720; 36415; 36600; 71045-TC; 71250-TC; 80048-TC; 80053-TC; 80076-TC; 80202-TC; 82803-TC; 82962-TC; 83605-TC; 83735-TC; 84100-TC; 84443-TC; 84484-TC; 85025-TC; 85730-TC; 86707; 87040-TC; 87081-TC; 87350; 90935-TC; 93307-TC; 94002-TC; 94003-TC; 94640-TC; 94760-TC; 94762-TC; 94799-TC; A4216; A4223; A6213; A7526; G0378; J1815; J2470; J2543; J3373; J3490; J7030; J7050; J7060; P9047